=== PATIENT | female | born 1995 | race Caucasian/White ===

== ENCOUNTER 2017-09-07 22:16 | Emergency (ER) | payer OTHER ==
[~2017-09-07] VITALS: Ht 154.9 cm; Wt 54.8 kg
[~2017-09-07 22:16] MED LIST: DILAUDID2 MG PO; FIORICET 50-301 EACH PO; FLOMAX0.4 MG PO; PERCOCET 5/31 TABLET PO; PHENERGAN25 MG PR; PROMETHAZINE HC25 M1 PO; ULTRACET1 TABLET PO; WELLBUTRIN100 MG PO; ZOFRAN ODT4 MG PO
[2017-09-07 22:48] LABS: ADD MIUA? YES; BILIRUBIN NEGATIVE; BLOOD SMALL; COLOR YELLOW ((YELLOW)); GLUCOSE (STRIP) NEGATIVE; KETONES 20; LEUKOCYTES LARGE; NITRITE NEGATIVE; PROTEIN (STRIP) 100; SPECIFIC GRAVITY 1.027 (1.000-1.030)
[2017-09-07 23:10] LABS: BACTERIA 3+ /HPF; CASTS NONE SEEN /LPF; CRYSTALS NONE SEEN; EPITHELIAL CELLS RARE /HPF; MUCUS 2+ /LPF; RED BLOOD CELLS 0-5 /HPF (0-5); UCUL ADDED? YES; WHITE BLOOD CELLS TNTC /HPF (0-5)
[2017-09-07 23:25] LABS: EOSINOPHIL (%) 0.1 % (0-5); HEMATOCRIT 36.9 % (36.0-46.0); IMMATURE GRANULOCYTE (%) 0.1 % (0.0-0.7); INSTRUMENT ABS NEUTROPHIL CT 4.8 K/uL; LYMPHOCYTE COUNT 1.3 K/uL (1.0-2.8); MCH 30.8 PG (29.0-34.0); MCV 88.1 FL (83-99); MEAN PLAT.VOLUME 9.8 uM^3 (9.5-12.4); MONOCYTE (%) 9.6 % (3-12); MONOCYTE COUNT 0.7 K/uL (0-0.8); NEUTROPHIL (%) 71.6 % (45-76); NEUTROPHIL COUNT 4.8 K/uL (1.8-6.4); PLATELET COUNT 168 K/uL (156-360); RBC DIS.WIDTH-CV 12.2 % (11.8-14.6); RBC DIS.WIDTH-SD 39.5 % (39-53); RED BLOOD COUNT 4.19 M/uL (3.80-5.20); WHITE BLOOD COUNT 6.8 K/uL (4.1-10.2)
[2017-09-07 23:35] LABS: CHLORIDE 105 mEq/L (99-109); POTASSIUM 3.3 mEq/L (3.7-5.4); SODIUM 136 mEq/L (136-147)
[2017-09-07 23:37] LABS: GLUCOSE 112 mg/dL (70-99)
[2017-09-07 23:39] LABS: ANION GAP 11 MEQ/L (2-14)
[2017-09-07 23:41] LABS: GFR ESTIMATE (CALCULATED) > 59 mL/min/
[2017-09-07 23:42] LABS: UREA NITROGEN (BUN) 9 mg/dL (9-23)
[2017-09-08] MEDS ORDERED: VALTREX1000 MG PO (02:34)
[2017-09-08] MEDS ORDERED: NORCO 5/3251 TABLET PO (02:34)
[2017-09-08] MEDS ORDERED: KEFLEX500 MG PO (02:34)
[2017-09-08 03:08] VITALS: BP 103/58
[2017-09-09 12:42] LABS: CHLAMYDIA TRACHOMATIS NEGATIVE; NEISSERIA GONORRHOEAE NEGATIVE
== END 2017-09-08 03:09 | disposition home or self-care (01) ==
LOC: EME 22:16
PROVIDERS: Emergency Medicine
DX: A60.00 Herpesviral infection of urogenital system, unspecified (principal); N39.0 Urinary tract infection, site not specified; R05 Cough; R00.0 Tachycardia, unspecified; Z11.3 Encounter for screening for infections with a predominantly sexual mode of transmission; Z87.442 Personal history of urinary calculi; F17.200 Nicotine dependence, unspecified, uncomplicated
CPT/HCPCS: 71020; 80048; 81003; 85025; 87086; 87491; 87591; 99281; 99285; J0696; J7030